=== PATIENT | male | born 1995 | race Caucasian/White ===

== ENCOUNTER 2023-12-25 15:23 | Emergency (ER) | payer SELFPAY ==
[2023-12-25 15:35] VITALS: BP 187/122; PULSE 114; RESP 18; TEMP 37.3; O2SAT 96
--- NOTE | 2023-12-25 15:52 | W.ED.PSYCHS ---
HPI - Psych General: Chief Complaint: Psychiatric Symptoms Stated Complaint: MHE Time Seen by Provider: 12/25/23 15:26 Source: patient Mode of arrival: ambulatory Limitations: no limitations History of Present Illness: 28-year-old male here states he has a history of substance abuse. He states that he abuses methamphetamine and wants to go to drug rehab. He denies any psychiatric complaints to me he denies being SI or HI he is not hallucinating having no acute psychosis. Review of Systems Const: Denies: fever(s) or chills ENMT: Denies: throat pain or dental pain Card: Denies: chest pain Resp: Denies: dyspnea GI: Denies: abdominal pain, nausea, vomiting or diarrhea Musc: Denies: neck pain or back pain Skin/Breast: Denies: rash Neuro: Denies: headache(s) Physical Exam Const: COMMON NORMALS: no acute distress, patient oriented x3 and healthy appearing HENMT: COMMON NORMALS: normocephalic and atraumatic HEAD & SCALP: normocephalic and atraumatic Neck/C-Spine: COMMON NORMALS: full ROM and supple Chest: COMMONS NORMALS: normal inspection of the chest Resp: COMMON NORMALS: normal respiratory effort Extremity: COMMON NORMALS: normal to inspection and full ROM Neuro: COMMON NORMALS: patient oriented x3, moves all extremities and no focal motor deficits Psych: COMMON NORMALS: mental status grossly normal, Normal thought process present and cooperative THOUGHT PROCESS: Normal thought process present THOUGHT CONTENT: No Suicidality present and No Homicidality present Skin: COMMON NORMALS: no rashes or lesions noted and no wounds GENERAL SKIN EXAM: no rashes or lesions noted Course Vital Signs: Vital signs: Vital Signs Temperature 99.1 F 12/25/23 15:35 Pulse Rate 114 H 12/25/23 15:35 Respiratory Rate 18 12/25/23 15:35 Blood Pressure 187/122 12/25/23 15:35 Pulse Oximetry 96 12/25/23 15:35 Oxygen Delivery Me thod Room Air 12/25/23 15:35 MDM - Psych Medical Decision Making Patient presents here a history of meth abuse he is wanting drug rehab. Did inform her we do not do drug rehab here did give him information for outpatient drug rehab he has no suicidal or homicidal ideations he has no hallucinations no signs of acute psychosis Medical Records I reviewed the patient's medical records. All radiology interpretation(s) finalized by discharge Discharge Plan Discharge Patient Disposition: Home Clinical Impression: Methamphetamine abuse Condition: Stable Discharge Orders: Discharge ED (Routine); Ordered 12/25/23 Ordered By: Devendra Hein Discharge Diet: Advance as tolerated Discharge Activity: Resume usual activity Patient Instructions: Methamphetamine Use Disorder (ED) Coding Level of Care Code ED Disability Insurance Claim Examiner for Maty Luna
== END 2023-12-25 16:07 | disposition home or self-care (01) ==
PROVIDERS: Emergency Provider Emergency Medicine
DX: F15.10 Other stimulant abuse, uncomplicated (principal)
CPT/HCPCS: 99283